=== PATIENT | female | born 1970 | race Two or more races ===

== ENCOUNTER 2020-09-01 11:17 | Emergency (ER) | payer OTHER ==
[~2020-09-01] VITALS: Ht 167.6 cm; Wt 111.6 kg
[2020-09-01] MEDS ORDERED: COZAAR100 MG (11:28)
[2020-09-01] MEDS ORDERED: NORVASC5 MG (11:28)
[2020-09-01] MEDS ORDERED: LASIX40 MG (11:29)
== END 2020-09-01 15:35 | disposition home or self-care (01) ==
LOC: ER 11:17
DX: I10 Essential (primary) hypertension (principal); R51.9 Headache, unspecified; F06.4 Anxiety disorder due to known physiological condition

== ENCOUNTER 2022-03-04 13:44 | Inpatient (IN) | payer OTHER ==
[~2022-03-04] VITALS: Ht 165.1 cm; Wt 104.3 kg
[~2022-03-04 13:44] MED LIST: COZAAR100 MG; LASIX40 MG; NORVASC5 MG
[2022-03-08] MEDS ORDERED: HYOSCYAMINE0.125 M1 SL (13:46)
[2022-03-08] MEDS ORDERED: AMLODIPINE BESYL5 MG PO (13:46)
[2022-03-08] MEDS ORDERED: HYDRODIURIL12.5 MG PO (13:46)
[2022-03-08] MEDS ORDERED: LOSARTAN POTAS100 MG PO (13:46)
== END 2022-03-08 15:04 | disposition home or self-care (01) | DRG 392 ==
LOC: ER 13:44 → SEC-K 21:16 → MEDI 03-05 12:53
PROVIDERS: ADMIT Internal Medicine; ATTEND Internal Medicine
PROC: BW21YZZ Computerized Tomography (CT Scan) of Abdomen and Pelvis using Other Contrast (ICD-10-PCS; principal; 2022-03-04)
DX: K52.89 Other specified noninfective gastroenteritis and colitis (principal); R10.13 Epigastric pain; E86.0 Dehydration; I10 Essential (primary) hypertension; F41.9 Anxiety disorder, unspecified; Z20.822 Contact with and (suspected) exposure to COVID-19